=== PATIENT | female | born 1985 | race Caucasian/White ===

== ENCOUNTER 2017-01-17 10:41 | Emergency (ER) | payer MEDICARE, MEDICAID ==
[2017-01-17 10:49] VITALS: BP 147/104
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
== END 2017-01-17 11:27 | disposition home or self-care (01) ==
LOC: DL.ED 10:41
DX: S96.912A Strain of unspecified muscle and tendon at ankle and foot level, left foot, initial encounter (principal); Z79.899 Other long term (current) drug therapy; W17.89XA Other fall from one level to another, initial encounter
CPT/HCPCS: 73610-LT; 99283

== ENCOUNTER 2017-06-11 13:53 | Emergency (ER) | payer MEDICARE, MEDICAID ==
[2017-06-11 14:13] VITALS: BP 145/102
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
[2017-06-11 14:27] LABS: ANION GAP 19.1; CHLORIDE,CL 102 mmol/L (101-111); SODIUM,NA 138 mmol/L (135-145)
[2017-06-11 14:29] LABS: ACETAMINOPHEN < 10
== END 2017-06-11 15:55 | disposition home or self-care (01) ==
LOC: DL.ED 13:53
DX: F32.9 Major depressive disorder, single episode, unspecified (principal); S61.512A Laceration without foreign body of left wrist, initial encounter; F19.10 Other psychoactive substance abuse, uncomplicated; F10.129 Alcohol abuse with intoxication, unspecified; N39.0 Urinary tract infection, site not specified; F17.210 Nicotine dependence, cigarettes, uncomplicated; Z79.899 Other long term (current) drug therapy; X78.9XXA Intentional self-harm by unspecified sharp object, initial encounter; Y90.3 Blood alcohol level of 60-79 mg/100 ml
CPT/HCPCS: 36415; 80053; 80305; 81001; 81025; 85025; 87086; 99285; G0480; 87088; 87186; 99284

== ENCOUNTER 2017-12-22 00:37 | Emergency (ER) | payer MEDICAID, MEDICARE ==
[2017-12-22] MEDS ORDERED: LORazepam 1 MG Tab PO ONE (00:38)
[2017-12-22] MEDS ORDERED: Sodium Chloride 0.9% 1,000 ML IV ONE (00:59)
[2017-12-22] MEDS ORDERED: LORazepam 2 MG/ML Syringe IVPUSH ONE (00:59)
[2017-12-22 01:03] VITALS: BP 135/109
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
[2017-12-22 02:14] LABS: ANION GAP 11.5; CHLORIDE,CL 105 mmol/L (101-111); SODIUM,NA 139 mmol/L (135-145)
[2017-12-22] MEDS ORDERED: LORazepam 1 MG Tab ONE (02:29)
== END 2017-12-22 03:03 | disposition home or self-care (01) ==
LOC: DL.ED 00:37
DX: F43.0 Acute stress reaction (principal); F43.20 Adjustment disorder, unspecified
CPT/HCPCS: 36415; 80053; 84703; 85025; 96365; 96375; 99283; A9270; G0480; J2060; J7030